=== PATIENT | female | born 1990 | race Caucasian/White ===

== ENCOUNTER 2019-05-15 15:35 | Outpatient (CLI) | payer MEDICAID, SELFPAY ==
--- NOTE | 2019-05-15 | US_ITS ---
WS: [id number] ULTRASOUND EARLY TECHNIQUE: Transabdominal sonography of the pelvis was performed. Followed by transvaginal sonography to better evaluate the uterus and ovaries. CLINICAL INFORMATION: DATING LMP: Unknown Beta hCG: Unknown. COMPARISON: None. FINDINGS: UTERUS AND GESTATIONAL SAC Intrauterine gestations: Estimated gestational age: 7w0d Yolk sac: 0.3 cm. Skene rump length (CRL): 0.9 cm. heart motion: 138 BPM. Subchorionic hemorrhage: Single live intrauterine with subchorionic hemorrhage. Small area of subchorionic hemorrhage measures 1.3 x 0.6 cm OVARIES Right ovary: Normal. Left ovary: Normal. FREE FLUID None. 2. Estimated gestational age: 7w0d 3. Small amount of subchorionic hemorrhage measuring 1.3 x 0.6 cm. Recommend interval follow-up. 4. Normal ovaries. 5. No free fluid in the cul-de-sac. US/US OB <= 14 weeks fetus [id number] IMPRESSION: 1. Single live intrauterine .
== END 2019-05-15 15:36 | disposition home or self-care (01) ==
LOC: RAD 15:37
PROVIDERS: Family Provider Family Medicine; PCP Family Medicine; Visit Provider Family Medicine
DX: Z34.80 Encounter for supervision of other normal pregnancy, unspecified trimester (principal); E03.9 Hypothyroidism, unspecified
CPT/HCPCS: 76801

== ENCOUNTER 2019-06-04 11:51 | Outpatient (CLI) | payer MEDICAID, SELFPAY ==
--- NOTE | 2019-06-04 12:00 | US_ITS ---
WS: [id number] [place] [id number] REASON FOR EXAM: SUBCHORIONIC HEMATOMA,ANTEPARTUM FINDINGS: The cervix measured 3.33 cm and appears to be closed. The subchorionic hematoma is not seen today. heart rate 167 bpm. The fetus appears to be at 9 weeks 5 days gestation due date January 02, 2020. [place] [id number] IMPRESSION: Reabsorption of the subchorionic hematoma. Viable at 9 weeks 5 days gestation with a due date January 02, 2020 .
== END 2019-06-04 11:52 | disposition home or self-care (01) ==
LOC: US 11:56
PROVIDERS: Family Provider Family Medicine; PCP Family Medicine; Visit Provider Family Medicine
DX: O43.899 Other placental disorders, unspecified trimester (principal); Z3A.09 9 weeks gestation of pregnancy
CPT/HCPCS: 76816

== ENCOUNTER 2019-08-13 13:05 | Outpatient (CLI) | payer MEDICAID, SELFPAY ==
--- NOTE | 2019-08-13 13:30 | US_ITS ---
WS: [id number] OBSTETRICAL ULTRASOUND COMPLETE HISTORY: ANATOMY COMPARISON: 06/04/2019 and 05/15/2019 Single intrauterine gestation in Cephalic presentation. Cervix is Closed and normal length. Cervical length is 5.5 cm. Normal amount of amniotic fluid surrounds the fetus. Placenta: Anterior, fundal and posterior Placenta grade 1 Heart: 133 BPM. Four chambers are identified. Anatomy: Intracranial structures and spine are normal. kidneys, stomach and urinary bladd er are unremarkable. Abdominal wall, three-vessel cord and cord insertion site are normal. 4 extremities are present. profile: Unremarkable. Gender: Female. measurements: BPD = 4.6 cm = 19w6d HC = 17.3 cm = 19w6d AC = 15.4 cm = 20w4d FL = 3.3 cm = 20w2d EFW: 348 g., Measurements are internally concordant. AGA by ultrasound: 20w1d MISSAEL by ultrasound: 12/30/2019 US/US OB >= 14 weeks fetus [id number] IMPRESSION: 1. Single intrauterine gestation of 20w1d with an MISSAEL of 12/30/2019. Appropria te growth since the first trimester ultrasound. 2. Unremarkable screening survey of anatomy.
== END 2019-08-13 13:06 | disposition home or self-care (01) ==
LOC: RAD 13:06
PROVIDERS: Family Provider Family Medicine; PCP Family Medicine; Visit Provider Family Medicine
DX: Z36.89 Encounter for other specified antenatal screening (principal); Z3A.20 20 weeks gestation of pregnancy
CPT/HCPCS: 76805

== ENCOUNTER 2019-08-24 12:38 | Outpatient (CLI) | payer MEDICAID, SELFPAY ==
--- NOTE | 2019-08-24 12:47 | US_ITS ---
WS: [id number] THYROID ULTRASOUND HISTORY: ENLARGED THYROID COMPARISON: 04/09/2017 Right lobe: 5.0 cm x 2.0 cm x 1.6 cm. Volume: 8.5 cm3. Mildly enlarged thyroid gland with ill-defined nodules. Coarsened echotexture has improved since the prior study. There is still some very slight increased vascularity. Left lobe: 4.9 cm x 1.8 cm x 1.8 cm. Volume: 8.5 cm3. Mildly enlarged gland. Coarsened echotexture is improved but there are still multiple ill-defined nod ules. No dominant nodule. Isthmus: 0.5 cm. US/US thyroid [id number] IMPRESSION: 1. Mildly enlarged gland consistent with mild thyroiditis. Overall the echotex ture has improved since 04/09/2017. 2. No discrete dominant nodule for biopsy.
--- NOTE | 2019-08-24 12:48 | US_ITS ---
WS: [id number] ULTRASOUND LEFT BREAST HISTORY: BREAST MASS/LUNG COMPARISON: None available. TECHNIQUE: 2-D and Doppler. Ultrasound directed to the 3:00 axis and around the nipple. There are minimally prominent dilated fernando ts. No solid mass or increased vascularity. No abscess. US/US breast LT limited* [id number] IMPRESSION: BI-RADS: 1-Negative FOLLOW-UP: See Report No additional follow-up necessary unless there is a palpable abnormality. Minim ally prominent ducts for the patient's state.
== END 2019-08-24 12:39 | disposition home or self-care (01) ==
LOC: RAD 12:40
PROVIDERS: Family Provider Family Medicine; PCP Family Medicine; Visit Provider Family Medicine
DX: E04.9 Nontoxic goiter, unspecified (principal); N63.20 Unspecified lump in the left breast, unspecified quadrant; E06.9 Thyroiditis, unspecified
CPT/HCPCS: 76536; 76642

== ENCOUNTER → 2019-10-12 15:27 | Outpatient (BNVA) | payer MEDICAID, SELFPAY | PROVIDERS: Family Provider Family Medicine; PCP Family Medicine; Visit Provider Obstetrics & Gynecology | DX: Z30.09 Encounter for other general counseling and advice on contraception (principal); O09.93 Supervision of high risk pregnancy, unspecified, third trimester; E06.9 Thyroiditis, unspecified | CPT/HCPCS: 80307; 81000; 82950; 84443; 85027; 86803 ==

== ENCOUNTER → 2019-10-20 08:39 | Outpatient (BNVA) | payer MEDICAID, SELFPAY | PROVIDERS: Family Provider Family Medicine; PCP Family Medicine; Visit Provider Obstetrics & Gynecology | DX: O09.93 Supervision of high risk pregnancy, unspecified, third trimester (principal) | CPT/HCPCS: 81000 ==

== ENCOUNTER → 2019-10-26 08:38 | Outpatient (BNVA) | payer MEDICAID, SELFPAY | PROVIDERS: Family Provider Family Medicine; PCP Family Medicine; Visit Provider Obstetrics & Gynecology | DX: R73.09 Other abnormal glucose (principal) | CPT/HCPCS: 82951; 82952 ==

== ENCOUNTER → 2019-11-04 13:07 | Outpatient (BNVA) | payer MEDICAID, SELFPAY | PROVIDERS: Family Provider Family Medicine; PCP Family Medicine; Visit Provider Obstetrics & Gynecology | DX: Z34.90 Encounter for supervision of normal pregnancy, unspecified, unspecified trimester (principal) | CPT/HCPCS: 81000 ==

== ENCOUNTER → 2019-11-06 09:04 | Outpatient (BNVA) | payer MEDICAID, SELFPAY | PROVIDERS: Family Provider Family Medicine; PCP Family Medicine; Visit Provider Obstetrics & Gynecology | DX: R10.11 Right upper quadrant pain (principal) | CPT/HCPCS: 80053; 85025 ==

== ENCOUNTER → 2019-11-20 13:35 | Outpatient (BNVA) | payer MEDICAID, SELFPAY | PROVIDERS: Family Provider Family Medicine; PCP Family Medicine; Visit Provider Obstetrics & Gynecology | DX: O99.283 Endocrine, nutritional and metabolic diseases complicating pregnancy, third trimester (principal); E05.90 Thyrotoxicosis, unspecified without thyrotoxic crisis or storm | CPT/HCPCS: 81000 ==

== ENCOUNTER 2019-11-24 14:35 | Outpatient (CLI) | payer MEDICAID, SELFPAY ==
[2019-11-24] VITALS (7 sets, daily range): BP systolic 0–115; BP diastolic 0–73; PULSE 79–105; RESP 18; TEMP 37.1
--- NOTE | 2019-11-24 16:19 | PM.ACPR ---
Procedure/Consent Procedure Narrative: NONSTRESS TEST: Place of test: [facility]-L&D Indication: Hyperthyroidism, abdominal pain in third trimester-34 weeks and 4 days Date and time of test: 11/24/2019, 4 PM Baseline: 135 Variability: Moderate variability Accelerations: Accelerations present Decelerations: No decelerations Tocometry: Irregular contractions INTERPRETATION: NST reactive, reassuring continue kick counts
[2019-11-24 16:53] LABS: Nitrazine Paper, PH Negative
== END 2019-11-24 17:15 | disposition home or self-care (01) ==
LOC: OPOB 14:47 → OBGYN 14:48
PROVIDERS: Family Provider Family Medicine; PCP Family Medicine; Visit Provider Obstetrics & Gynecology
DX: O26.899 Other specified pregnancy related conditions, unspecified trimester (principal); Z3A.00 Weeks of gestation of pregnancy not specified; R10.9 Unspecified abdominal pain; N89.8 Other specified noninflammatory disorders of vagina
CPT/HCPCS: 12345; 83986; 99211

== ENCOUNTER → 2019-11-27 10:26 | Outpatient (BNVA) | payer MEDICAID, SELFPAY | PROVIDERS: Family Provider Family Medicine; PCP Family Medicine; Visit Provider Obstetrics & Gynecology | DX: O99.283 Endocrine, nutritional and metabolic diseases complicating pregnancy, third trimester (principal); E05.90 Thyrotoxicosis, unspecified without thyrotoxic crisis or storm | CPT/HCPCS: 76816; 76819 ==

== ENCOUNTER → 2019-12-04 13:56 | Outpatient (BNVA) | payer MEDICAID, SELFPAY | PROVIDERS: Family Provider Family Medicine; PCP Family Medicine; Visit Provider Obstetrics & Gynecology | DX: O09.43 Supervision of pregnancy with grand multiparity, third trimester (principal); Z3A.00 Weeks of gestation of pregnancy not specified | CPT/HCPCS: 76816; 76819; 81000; 87081 ==

== ENCOUNTER → 2019-12-11 10:18 | Outpatient (BNVA) | payer MEDICAID, SELFPAY | PROVIDERS: Family Provider Family Medicine; PCP Family Medicine; Visit Provider Obstetrics & Gynecology | DX: O09.43 Supervision of pregnancy with grand multiparity, third trimester; O09.893 Supervision of other high risk pregnancies, third trimester; O99.283 Endocrine, nutritional and metabolic diseases complicating pregnancy, third trimester; E05.90 Thyrotoxicosis, unspecified without thyrotoxic crisis or storm; O99.613 Diseases of the digestive system complicating pregnancy, third trimester; K21.9 Gastro-esophageal reflux disease without esophagitis; Z3A.37 37 weeks gestation of pregnancy | CPT/HCPCS: 76816; 76819; 81000; 85025 ==

== ENCOUNTER 2019-12-17 11:50 | Inpatient (IN) | payer MEDICAID, SELFPAY ==
[2019-12-17] VITALS (92 sets, daily range): BP systolic 0–155; BP diastolic 0–86; PULSE 69–117; RESP 16–20; TEMP 36.7–37.2; O2SAT 98–100; BMI 32.8
--- NOTE | 2019-12-17 10:45 | PC.NURSE ---
This selling underwriter attempted to start patients IV two separate times, once in each hand. During each attempt, patient started feeling lightheaded and thought she was going to pass out. After the first time patient started feeling nauseous and dry heaving. This selling underwriter then gave the patient a cool rag to put on her face. Will reattempt patient IV in a short time.
[2019-12-17 11:26] LABS: Basophils % 0.5 %; Eosinophils # 0.1 10^3/uL (0.0-0.8); Hemoglobin 10.5 g/dL (11.5-15.3); Lymphocytes # 2.9 10^3/uL (0.8-4.8); Lymphocytes % 37.2 %; Mean Corpuscular HGB Conc 30.9 g/dL (30.0-36.0); Mean Corpuscular Hemoglobin 25.3 pg (28.0-34.0); Mean Corpuscular Volume 81.9 fL (81-99); Mean Platelet Volume 11.2 fL (7.4-10.4); Monocytes # 0.6 10^3/uL (0.2-0.9); Monocytes % 8.1 %; Neutrophils # 4.01 10^3/uL (1.8-7.7); Neutrophils % 52.4 %; Nucleated Red Blood Cells % 0 %; Platelet Count 266 10^3/cmm (130-400); Red Blood Count 4.15 10^6/uL (4.1-5.3); Red Cell Distribution Width 13.4 % (12.1-15.1); White Blood Count 7.7 10^3/uL (4.0-10.0)
[2019-12-17] MEDS: alum-mag-hydroxide-sime 30 mL UDC PO (13:41)
[2019-12-17] MEDS: dextrose 5%-lactated ringers 1,000 ML 125 ML IV (15:47)
[2019-12-17] MEDS: oxytocin 30 UNIT/500 ML BAG IV (16:07)
[2019-12-17 16:40] LABS: Nitrazine Paper, PH Positive
[2019-12-17] MEDS: lactated ringers 1,000 ML 999 ML IV ×2 (17:14→20:38)
[2019-12-17] MEDS: fentaNYL 50 mcg/mL INJ 2mL IV (17:55)
--- NOTE | 2019-12-17 18:12 | P.ANESASSM_ITS ---
Pre-Anesthetic Assessment Pre-Anesthetic Assessment: Height/Weight: Height 1.52 m Weight 76.204 kg Temp Pulse Resp BP 98.9 F 82 20 H 93/54 12/17/19 13:38 12/17/19 17:12 12/17/19 17:55 12/17/19 17:12 Preop Diagnosis: labor pain Proposed Procedure: epidural Was Beta Tylor taken within 24 hours: N/A Social: Social History: No alcohol and No tobacco Exam: Pre-Anes Outpt Exam: alert, oriented x 3, clear to auscultation bilaterally and regular rate & rhythm Airway: Submandibular: WNL Cervical ROM: WNL MP: 2 Dentition: Full Pulmonary: Pulmonary: None reported CV/HEM: CV/HEM: Anemia Comments: leaky valve as kid but has resolved per patient : : None reported Hepatic: Hepatic: None reported GI: GI: GERD Metabolic: Metabolic: None reported Musc/skel: Musc/skel: None reported Neuropsych: Neuropsych: None reported Anesthetic Plan: ASA status: 2 Anesthesia: Eval. for regional block Risk of > 500 ml blood loss (7ml/kg in children): No Meds/Allergies Current Medications: Current Medications Generic Name Dose Route Start Last Admin Trade Name Freq PRN Reason Stop Dose Admin Al Hydrox/Mg [place] x/Simethicone 30 ml 12/17/19 09:55 12/17/19 13:41 Maalox PO 30 ml Q4H PRN Administration INDIGESTION Fentanyl 25 - 100 mcg 12/17/19 17:44 12/17/19 17:55 Sublimaze IV 25 mcg Q1H PRN Administration SEVERE PAIN Lactated Ringer's 1,000 mls @ 999 m ls/hr 12/17/19 09:55 12/17/19 17:14 Lactated Ringers IV 999 mls/hr .Q1H1M PRN Administration Per L&D Rescitati on Protocol Dextrose/Lactated Ringer's 1,000 mls @ 125 m ls/hr 12/17/19 10:00 12/17/19 17:14 Dextrose 5%-Lact ated Ringers IV 0 mls/hr .Q8H MAURILIO Infusion Oxytocin 30 unit in 500 ml s @ 1 mls/hr 12/17/19 16:00 12/17/19 16:37 Pitocin IV 2 milliunit/min .Q24H MAURILIO 2 mls/hr Titration Protocol 1 MILLIUNIT/MIN PFSH Anesthesia PFSH: Medical History Patient denies medical problems Patient denies any past medical history of hypertension, diabetes, heart, lung, liver, kidney, thyroid, bleeding, or clotting problems. Thyroiditis Surgical History History of ankle surgery ORIF right ankle History of cholecystectomy (~2013) History of endoscopy Endoscopic retrograde cholangiopancreatography x 3 Family History Grandmother Diabetes paternal Hyperlipidemia paternal Hypertension paternal Hypothyroid paternal Family/Other Thyroid condition maternal aunts Denies family history of Clotting disorder Anesthesia complication Bleeding disorder Stroke Social History (Updated 12/11/19 @ 11:08 by Griselda Mendoza RN) Smoking and tobacco status: former smoker Quit status (tobacco): has quit using tobacco Year quit tobacco: 2013 Alcohol intake: never Female Reproductive History: : 12 Data Anesthesia CBC & Chem 7: 12/17/19 10:20 Other Labs: Laboratory Results - last 48 hr 12/17/19 10:20 WBC 7.7 RBC 4.15 Hgb 10.5 L Hct 34.0 L MCV 81.9 MCH 25.3 L MCHC 30.9 RDW 13.4 Plt Count 266 MPV 11.2 H Neut % (Auto) 52.4 Lymph % (Auto) 37.2 Ritchie % (Auto) 8.1 Eos % (Auto) 1.0 Baso % (Auto) 0.5 Neut # (Auto) 4.01 Lymph # (Auto) 2.9 Ritchie # (Auto) 0.6 Eos # (Auto) 0.1 Baso # (Auto) 0.0 Nucleated RBC % (auto) 0 Nucleated RBCs # 0.0 Cardiac Studies: 2 No Data to Display
--- NOTE | 2019-12-17 18:44 | ANES.PROC ---
Anesthesia Procedures Procedure/Date: 12/17/19 epidural Procedure Narrative: epidural complete, bolus given, epidural pump initiated with CORRUGATOR OPERATOR HELPER education given, vitals taken during procedure using OBIX system and satisfactory throughout, patient admits to decrease pain, report of procedure to OB RN Epidural: Time Out Performed: Yes Consents Signed: Procedure Consent Consent: requested by attending/covering physician, from patient, risks and benefits reviewed and patient agrees to proceed Lumbar Level: L3-L4 Epidural position: sitting Epidural procedure: sterile prep of area, 1% lidocaine to numb the area (3 mL), 18 g needle, negative for paresthesia passed, neg for paresthesia, test dose given, 1.5% xylocaine 1:200k epi (5 mL), 0.2% Ropivacaine bolus ml (5 mL), placed PCEA, no systemic response, sterile dressing applied, L.U.D. no apparent complications and 0.2% Ropiavacaine @ mls/hr (13 mL/hr)
--- NOTE | 2019-12-17 22:04 | XR_ITS ---
WS: [id number] ABDOMEN 1 VIEW(S) HISTORY: STAT no count COMPARISON: None available. Normal bowel gas pattern. No suspicious calcifications or masses. No bone abnormality. No retained foreign bodies or surgical sponge. XR/XR abdomen 1V* [id number] IMPRESSION: Negative for retained surgical instruments.
--- NOTE | 2019-12-17 22:31 | PM.OP ---
Operative Report Date of procedure: December 17, 2019 Pre-op Diagnosis: labor pain Pre-op Diagnosis: IUP at term. Nonreassuring status Post-op Findings: Baby boy, Nuchal cord around the neck twice, Apgars 8/9 weight 2945 g Procedure Done: Primary low-transverse delivery Surgeon: Marcelo Peraza Surgeon: Marcelo Peraza M.D. Anesthesia: General Estimated blood loss (mL): 1,000 Findings: Term Male infant, Nuchal cord ?2, Apgars 8/9 weight 2945 g Condition: stable Disposition: floor Brief History: 29-year-old female with term Procedure: After assuring informed consent, the patient was taken to the operating room and anesthesia was initiated. She was placed in the dorsal supine position with a left lateral tilt. The abdomen was prepped and draped in the usual sterile manner. A time-out procedure was performed. A Pfannenstiel skin incision was made with the scalpel and carried through to the underlying layer of fascia with the Bovie. The fascia was nicked in the midline and the incision extended laterally with the Barrera scissors. The superior aspect of the fascial incision was then grasped with Anu clamps and elevated and the underlying rectus muscle dissected off bluntly and sharp with barrera scissors. Attention was then turned to the inferior aspect of the incision which, in similar fashion, was grasped and tented up with Anu clamps and the rectus muscle dissected bluntly. The rectus muscles were then in the midline and the peritoneum identified, tented up and entered sharply with Metzenbaum scissors. The peritoneal incision was then extended superiorly and inferiorly with good visualization of the bladder. The Jose De Jesus O retractor was then inserted and the vesicouterine peritoneum identified, grasped with pickups and entered sharply with Metzenbaum scissors. This incision was then extended laterally and the bladder flap created digitally. The uterus incised in a low transverse fashion with the scalpel. The uterine incision was then extended with the bandage scissors. The infant was then delivered in the cephalic presentation atraumatically at 2118 hours. Nuchal cord ?2 was noticed and relieved. The nose and the mouth were suctioned with bulb and the cord clamped and cut. The cord was normal and had three vessels. Amniotic fluid was clear. The placenta was then removed manually and the uterus exteriorized and cleared of all clots and debris. The uterine incision was repaired with 0 Vicryl in a running-locked fashion. A second layer of the same suture was used to obtain excellent hemostasis. The gutters were cleared of all clots. The uterus was then returned to the abdomen. The rectus muscles were approximated with 3-0 chromic gut. The fascia was reapproximated with 0 Vicryl in an interrupted midlock running fashion. The skin was closed with Insorb?s subcuticular absorbable mian. The incision was infiltrated with Exparel for pain management. The patient tolerated the procedure well. The sponge, lap and needle counts were correct times three. The patient was given Ancef 2 gm intravenously immediately after delivery of the infant.
--- NOTE | 2019-12-17 22:32 | ANE.PACU2 ---
Inpatient post-anesthesia follow up: Airway intact: Yes Vital signs: Temperature 98.9 F Pulse Rate 93 Respiratory Rate 20 Blood Pressure 130/65 Pulse Oximetry 100 Oxygen Delivery Me thod Room Air Oxygen Flow Rate Fraction of Inspir ed Oxygen Hydration adequate: Yes Nausea and vomiting: No Mental status: Baseline
[2019-12-18] VITALS (19 sets, daily range): BP systolic 87–118; BP diastolic 48–75; PULSE 68–88; RESP 14–20; TEMP 36.7–37.2; O2SAT 96–97
[2019-12-18] MEDS: diphenhydrAMINE 50 mg/mL SDV 1mL 25 MG IVP ×2 (00:53→05:58)
[2019-12-18] MEDS: ketorolac 30 mg/mL INJ IVP (05:58)
[2019-12-18] MEDS: ceFAZolin 1,000 MG in sodium chloride 0.9% (plus) 50 ML 100 MG IV (05:58)
--- NOTE | 2019-12-18 07:27 | ANE.PACU2 ---
Inpatient post-anesthesia follow up: Airway intact: Yes Vital signs: Temperature 98.9 F Pulse Rate 74 Respiratory Rate 16 Blood Pressure 118/75 Pulse Oximetry 96 Oxygen Delivery Me thod Room Air Oxygen Flow Rate Fraction of Inspir ed Oxygen Hydration adequate: Yes Nausea and vomiting: No Pain level: 2 Mental status: Baseline Additional Comments: no signs of infection a epidural site, no numbness/weakness in legs, no headaches
[2019-12-18] MEDS: ferrous sulfate EC 325 mg Tablet PO ×2 (09:49→18:15)
[2019-12-18] MEDS: prenatal vitamin Capsule 1 CAP PO (09:50)
[2019-12-18] MEDS: docusate sodium 100 mg Capsule PO ×2 (09:50→18:14)
[2019-12-18] MEDS: dextrose 5%-lactated ringers 1,000 ML 125 ML IV (09:51)
[2019-12-18 11:04] LABS: Hematocrit 24.8 % (37.0-47.0); Hemoglobin 7.5 g/dL (11.5-15.3); Mean Corpuscular HGB Conc 30.2 g/dL (30.0-36.0); Mean Corpuscular Hemoglobin 25.4 pg (28.0-34.0); Mean Corpuscular Volume 84.1 fL (81-99); Mean Platelet Volume 10.5 fL (7.4-10.4); Platelet Count 265 10^3/cmm (130-400); Red Blood Count 2.95 10^6/uL (4.1-5.3); Red Cell Distribution Width 13.5 % (12.1-15.1); White Blood Count 19.4 10^3/uL (4.0-10.0)
[2019-12-18] MEDS: HYDROcodone-acetaminophen 5-325 mg Tablet PO ×2 (12:08→18:50)
--- NOTE | 2019-12-18 12:59 | P.PN_ITS ---
Subjective Subjective: Interval history: 29-year-old female status post primary low- transverse delivery day 1. Patient refers doing better. Pain well control. Vitals/I&O/Wt Last Vital Signs Temp 98.5 F 12/19/19 08:30 Pulse 73 12/19/19 08:30 Resp 18 12/19/19 08:30 BP 107/71 12/19/19 08:30 Pulse Ox 97 12/18/19 18:43 12/18/19 12/19/19 12/19/19 22:59 06:59 14:59 Intake Total 700 / 875 Output Total 650 / 1450 675 / 2125 Balance 50 / -575 -675 / -1250 Physical Exam Narrative: EXAM NARRATIVE: GA: Alert and oriented ?3. HEENT: WNL. Heart: Regular rate and rhythm. Lungs: Clear to auscultation bilaterally. Abdomen: Bowel sounds present, minimal tenderness, incision clean and dry, no redness, pain or edema. CLINICAL SUPPORT ASSOCIATE: No bleeding. Extremities: No edema, no cyanosis, no calves pain. Urinary Catheter Management^: Boateng: Cath Placed During This Visit: yes, but has since been removed by the nurse Reason for Continuing Indwelling Catheter: Required Immobilization for Trauma or Surgery or Anesthesia Urinary Catheter Date of Insertion: 12/17/19 Urinary Catheter Time of Insertion: 21:04 Date Urinary Catheter Removed: 12/19/19 Time Urinary Catheter Discontinued: 04:00 Data : 12/19/19 06:15 A&P Additional A&P Information Status post primary low-transverse delivery day 1. She is afebrile hemodynamically stable. Tolerating diet well ambulating without difficulty. Plan: Continue postop observation Attestations Medical Necessity Statement*: In my professional opinion per admitting diagnosis Coding Level of Care Code Acute Veterinary Surgery Technician for Dulce Edge
--- NOTE | 2019-12-18 14:45 | SUR.OPER ---
6057 blood bank called, blood is ready
[2019-12-18] MEDS: sodium chloride 0.9% 500 ML 250 ML (15:02)
[2019-12-18] MEDS: sodium chloride 0.9% (100 ml) 100 ML 50 ML (18:20)
[2019-12-19] MEDS: HYDROcodone-acetaminophen 5-325 mg Tablet PO ×2 (02:45→08:46)
[2019-12-19 04:20] VITALS: BP 108/71; PULSE 80; RESP 17; TEMP 36.9
[2019-12-19 06:39] LABS: Hemoglobin 9.4 g/dL (11.5-15.3); Mean Corpuscular HGB Conc 31.3 g/dL (30.0-36.0); Mean Corpuscular Hemoglobin 26.7 pg (28.0-34.0); Mean Corpuscular Volume 85.2 fL (81-99); Mean Platelet Volume 10.5 fL (7.4-10.4); Platelet Count 213 10^3/cmm (130-400); Red Blood Count 3.52 10^6/uL (4.1-5.3); Red Cell Distribution Width 14.1 % (12.1-15.1); White Blood Count 12.8 10^3/uL (4.0-10.0)
[2019-12-19 08:30] VITALS: BP 107/71; PULSE 73; RESP 18; TEMP 36.9
[2019-12-19] MEDS: docusate sodium 100 mg Capsule PO ×2 (08:46→17:54)
[2019-12-19] MEDS: prenatal vitamin Capsule 1 CAP PO (08:47)
--- NOTE | 2019-12-19 10:02 | P.PN_ITS ---
Subjective Subjective: Interval history: 29-year-old female status post primary low- transverse delivery day 1. Patient refers doing better. Pain well control. took a shower Vitals/I&O/Wt Last Vital Signs Temp 98.5 F 12/19/19 08:30 Pulse 73 12/19/19 08:30 Resp 18 12/19/19 08:30 BP 107/71 12/19/19 08:30 Pulse Ox 97 12/18/19 18:43 12/18/19 12/19/19 12/19/19 22:59 06:59 14:59 Intake Total 700 / 875 Output Total 650 / 1450 675 / 2125 Balance 50 / -575 -675 / -1250 Physical Exam Narrative: EXAM NARRATIVE: GA: Alert and oriented ?3. HEENT: WNL. Heart: Regular rate and rhythm. Lungs: Clear to auscultation bilaterally. Abdomen: Bowel sounds present, minimal tenderness, incision clean and dry, no redness, pain or edema. CARBON CAPTURE POWER PLANT ENGINEER: Normal lochia. Extremities: No edema, no cyanosis, no calves pain. Urinary Catheter Management^: Boateng: Cath Placed During This Visit: yes, but has since been removed by the nurse Reason for Continuing Indwelling Catheter: Required Immobilization for Trauma or Surgery or Anesthesia Urinary Catheter Date of Insertion: 12/17/19 Urinary Catheter Time of Insertion: 21:04 Date Urinary Catheter Removed: 12/19/19 Time Urinary Catheter Discontinued: 04:00 Data : 12/19/19 06:15 A&P Additional A&P Information Status post primary low-transverse delivery day 2. She is afebrile hemodynamically stable. Tolerating diet well ambulating without difficulty. Plan: Continue postop observation. Discharge home tomorrow. Attestations Medical Necessity Statement*: In my professional opinion per admitting diagnosis. Coding Level of Care Code Acute Gas Or Petroleum Operator for Dulce dEge
[2019-12-19] MEDS: ferrous sulfate EC 325 mg Tablet PO ×2 (11:14→17:54)
[2019-12-19 16:00] VITALS: BP 125/85; PULSE 89; RESP 16; TEMP 36.8
[2019-12-19 18:15] VITALS: BP 104/69; PULSE 69; RESP 18; TEMP 36.3
[2019-12-19 22:16] VITALS: BP 122/79; PULSE 72; RESP 16; TEMP 36.9; O2SAT 96
[2019-12-20] MEDS: HYDROcodone-acetaminophen 5-325 mg Tablet PO ×2 (02:20→08:09)
[2019-12-20 05:30] VITALS: BP 104/66; PULSE 60; RESP 16; TEMP 36.7; O2SAT 98
[2019-12-20] MEDS: ferrous sulfate EC 325 mg Tablet PO (08:09)
[2019-12-20] MEDS: docusate sodium 100 mg Capsule PO (08:10)
[2019-12-20] MEDS: prenatal vitamin Capsule 1 CAP PO (08:10)
[2019-12-20 10:00] VITALS: BP 104/68; PULSE 60; RESP 16; TEMP 36.9; O2SAT 98
--- NOTE | 2019-12-20 10:34 | PM.OBGYDC ---
Discharge Providers SALES DEPARTMENT SUPERVISOR Date of Admission: 12/17/19 11:50 Date of Discharge: 12/20/19 Attending Provider at Admission: Cruz Huizar DO Attending Provider at Discharge: Marcelo Peraza MD Primary Care Provider: Cruz Huizar DO Diagnoses at Discharge Discharge Diagnosis (1) delivery, delivered, current hospitalization: Status: Acute (2) Premature rupture of membranes (PROM), delivered: Status: Acute Reason for Visit Reason for Visit: Possible rupture of membranes Hospital Course Hospital Course: 29 y/0 female 12, Para 2-0-9-2 with an LMP of 03/27/2019 and an EDC of 01/01/2020 based on LMP. Came to labor and delivery complaining of rupture of membranes and contractions. Prematured rupture membranes was confirmed, Cervical dilation was 2 with effacement of 40% station -3 in Cephalic presentation. Labor augmented with oxytocin, She progressed slowly, heart tracing started to show variable decelerations. Intrauterine resuscitation was initiated, she is in change several times, and infusion was performed, without improvement of repetitive variable decelerations. An emergent delivery was performed without complications. The patient had planned to have a tubal ligation but the procedure was not performed during the delivery because nursing personnel cannot find the consent for the permanent sterilization. Post delivery recovery was uneventful. Postop morning CBC showed hemoglobin 7.5, and 2 units of packed red blood cells were ordered. Post_transfusion hemoglobin was 9.4. She is afebrile and hemodynamically stable, referred this morning she is feeling a lot better, just mild cramping while breast-feeding. Ambulating without difficulty, Tolerating diet well. Information Peripartum Data: Infant Delivery Method: Section Physical Exam Narrative: EXAM NARRATIVE: GA: Alert and oriented ?3. HEENT: WNL. Heart: Regular rate and rhythm. Breasts: engorged, nipples - skin intact Lungs: Clear to auscultation bilaterally. Abdomen: Bowel sounds present, minimal tenderness, incision clean and dry, no redness, pain or edema. Uterine fundus below umbilicus. No Fundal Tenderness. ORTHO/PROSTHETIC AIDE: normal lochia. Extremities: No edema, no cyanosis, no calves pain. Urinary Catheter Management^: Boateng: Cath Placed During This Visit: yes, but has since been removed by the nurse Reason for Continuing Indwelling Catheter: Required Immobilization for Trauma or Surgery or Anesthesia Urinary Catheter Date of Insertion: 12/17/19 Urinary Catheter Time of Insertion: 21:04 Date Urinary Catheter Removed: 12/19/19 Time Urinary Catheter Discontinued: 04:00 Discharge Data Data Completed and Pending: Completed Studies During Hospitalization Category Date Time Status XR abdomen 1V* 74 018 Stat Exams 12/17/19 22:04 Completed Pending at discharge Category Date Time Status Leukocyte Reduced RBC Routine Lab 12/18/19 12:22 Results Type and Screen R outine Lab 12/18/19 12:22 Results Laboratory Tests 12/11/19 12/17/19 12/18/19 11:52 10:20 10:50 WBC 7.7 7.7 19.4 H Hgb 10.2 L 10.5 L 7.5 L Hct 33.6 L 34.0 L 24.8 L Plt Count 299 266 265 12/19/19 06:15 WBC 12.8 H Hgb 9.4 L Hct 30.0 L Plt Count 213 Procedures Performed: Primary low-transverse delivery Vitals: Last Vital Signs Temp 98.0 F 12/20/19 05:30 Pulse 60 12/20/19 05:30 Resp 16 12/20/19 05:30 BP 104/66 12/20/19 05:30 Pulse Ox 98 12/20/19 05:30 Discharge Plan Discharge Patient Disposition: Home Condition: Stable Prescriptions: New acetaminophen 325 mg Tablet 650 mg PO Q6H PRN (Reason: Mild pain or temp > 100.4) Qty: 60 RF: 0 ibuprofen 800 mg Tablet 800 mg PO TID Qty: 60 RF: 0 hydrocodone-acetaminophen 5-325 mg Tablet 1 - 2 tab PO Q4H PRN (Reason: Moderate To Severe Pain) Qty: 30 RF: 0 docusate sodium 100 mg Capsule 100 mg PO BID Qty: 60 RF: 0 Continued ferrous sulfate 324 mg (65 mg iron) tablet,delayed release (DR/EC) See Rx Instructions PO DAILY RF: 0 prenat.vits,pamella,[id number]-wjyp-ghunw Tablet 1 tab PO DAILY RF: 0 calcium carbonate [Tums] 200 mg calcium (500 mg) tablet,chewable 200 mg PO TID PRN (Reason: Acid Reflux) RF: 0 folic acid 400 mcg tablet 0.4 mg PO DAILY RF: 0 methimazole 5 mg tablet 5 mg PO DAILY Qty: 30 RF: 0 omeprazole 20 mg capsule,delayed release(DR/EC) 20 mg PO DAILY Qty: 30 RF: 5 Discharge Orders: Discharge Order (Routine); Ordered 12/20/19 Ordered By: Marcelo Peraza Referrals: Marcelo Peraza MD [Physician] - 2 weeks Discharge Diet: As Directed Discharge Activity: Increase activity as tolerated Patient Instructions: Hydrocodone/Acetaminophen (By mouth), Vitamins (By mouth), Laxative, Stool Softeners (By mouth), Section (DC), OB C, OB Discharge Report, OB Food/Drug Interaction Guide, OB Home Care Instructions, OB Home Care, OB Proud Parent Packet Activity Restrictions/Additional Instructions: Pelvic rest for 6 weeks (no sex, no tampons, no vaginal douches). Return to the emergency room if any fever, increased bleeding or pain. Discharge Attestations SALES DEPARTMENT SUPERVISOR Time Spent in Discharge Care*: greater than 30 min Coding Level of Care Code Acute Health Manager for g Fwd Diagnoses delivery, delivered, current hospitalization O82 Premature rupture of membranes (PROM), delivered O42.90
[2019-12-20] MEDS: lanolin oint 7 gm 1 APPLIC TOPICAL (10:39)
[2019-12-20 13:40] VITALS: BP 118/78; PULSE 76; RESP 18; TEMP 37.3; O2SAT 98
[2019-12-20 15:00] VITALS: BP 118/78; PULSE 76; RESP 18; TEMP 37.3
== END 2019-12-20 13:45 | disposition home or self-care (01) | DRG 788 ==
LOC: OBGYN 12-19 18:13 → OPOB 12-22 08:36
PROVIDERS: Obstetrics & Gynecology; Admitting Provider Family Medicine; PCP Family Medicine; Visit Provider Obstetrics & Gynecology
PROC: 10D00Z1 Extraction of Products of Conception, Low, Open Approach (ICD-10-PCS; CPT 59514; principal; 2019-12-17 21:05)
DX: O76 Abnormality in fetal heart rate and rhythm complicating labor and delivery (principal); O69.2XX0 Labor and delivery complicated by other cord entanglement, with compression, not applicable or unspecified; O42.92 Full-term premature rupture of membranes, unspecified as to length of time between rupture and onset of labor; Z3A.37 37 weeks gestation of pregnancy; Z37.0 Single live birth
CPT/HCPCS: 12345; 36415; 36430; 59025; 59409; 74018; 83986; 85025; 85027; 86850; 86900; 86920; 96374; 96375; 99211; C9290; J0330; J0690; J1100; J1200; J1885; J2274; J2405; J2704; J3010; J3490; J7030; J7040; P9016

== ENCOUNTER 2019-12-24 16:29 | Emergency (ER) | payer MEDICAID, SELFPAY ==
[2019-12-24 16:39] VITALS: BP 170/105; PULSE 64; RESP 20; TEMP 36.6; O2SAT 99; BMI 31.2
--- NOTE | 2019-12-24 16:54 | XR_ITS ---
WS: [id number] Portable AP upright chest, 12/24/2019 Clinical Data: SOB Comparison: PA and lateral chest, 03/19/2017. Findings: No nodules or masses are seen. There is minimal opacity at the left costophrenic angle and there may be a small effusion. The heart is enlarged. The pulmonary vascularity is not increased. No pneumonia or pneumothorax is seen. There are clips in the right upper quadrant from a cholecystectom y. XR/XR chest 1V portable [id number] Impression: 1. Cardiomegaly. 2. Minimal left effusion and opacity which may represent atelectasis or pneumon ia.
--- NOTE | 2019-12-24 16:55 | ECG_ITS ---
[facility] Test Date: 2019-12-24 Pat Name: Agata Hurst Department: Room: Gender: Female Dough Raiser: : 1990 Requested By: Latrice Jane Order Number: [id number] Sadie MD: Garret Davidson M.D. Measurements Intervals [place] Rate: 61 P: 40 ND: 119 QRS: 28 QRSD: 85 T: 32 QT: 445 QTc: 449 Interpretive Statements SINUS RHYTHM WITH SHORT ND INTERVAL WITH FREQUENT VENTRICULAR PREMATURE COMPLEXES MINIMAL ST DEPRESSION [0.025+ mV ST DEPRESSION] ABNORMAL RHYTHM ECG No previous ECG available for comparison Electronically Signed On 12-24-2019 20:23:18 CDT by Garret Davidson M.D. [id number]
[2019-12-24 17:19] VITALS: BP 166/92; PULSE 53; RESP 16; O2SAT 99
[2019-12-24 17:27] LABS: Add Urine Microscopic? YES; Bilirubin Urine Neg (Negative); Blood Urine 3+ (Negative); Glucose Urine UA Norm (Normal); Ketones Urine Negative (Negative); Leukocyte Esterase Urine Negative (Negative); Nitrate Urine Negative (Negative); Protein Urine Neg (Negative); Urine Appearance Hazy (CLEAR); Urine Color Straw (Yellow); Urobilinogen Urine Norm (Negative); pH Urine 7 (5-7)
[2019-12-24 17:40] LABS: RBC Urine 0-4 /hpf (0-2)
[2019-12-24 17:41] LABS: Add Urine Culture? No; Bacteria Urine TRACE /hpf; Squamous Epithelial Cell Urine 0-4 /hpf (0-5)
[2019-12-24 17:44] LABS: Basophils # 0.1 10^3/uL (0.0-0.1); Basophils % 0.7 %; Eosinophils # 0.1 10^3/uL (0.0-0.8); Eosinophils % 1.4 %; Hemoglobin 12.1 g/dL (11.5-15.3); Lymphocytes # 2.3 10^3/uL (0.8-4.8); Lymphocytes % 26.2 %; Mean Corpuscular HGB Conc 31.8 g/dL (30.0-36.0); Mean Corpuscular Hemoglobin 26.6 pg (28.0-34.0); Mean Corpuscular Volume 83.5 fL (81-99); Mean Platelet Volume 10.4 fL (7.4-10.4); Monocytes # 0.6 10^3/uL (0.2-0.9); Monocytes % 6.3 %; Neutrophils # 5.61 10^3/uL (1.8-7.7); Neutrophils % 63.4 %; Nucleated Red Blood Cells % 0 %; Platelet Count 381 10^3/cmm (130-400); Red Blood Count 4.55 10^6/uL (4.1-5.3); Red Cell Distribution Width 14.6 % (12.1-15.1); White Blood Count 8.9 10^3/uL (4.0-10.0)
[2019-12-24 18:09] LABS: Troponin(5th) Baseline 7 ng/L (0-10)
[2019-12-24 18:14] LABS: Alanine Aminotransferase 15 U/L (0-33); Alkaline Phosphatase 124 IU/L (35-105); Anion Gap 15.9 (5-19); Aspartate Amino Transferase 17 U/L (0-32); Blood Urea Nitrogen 11 mg/dL (6-20); Calcium 8.7 mg/dL (8.5-10.5); Carbon Dioxide 24 mmol/L (22-29); Chloride 105 mmol/L (98-107); Globulin 3.3 g/dL (1.3-4.6); Glomerular Filtration Rate 117.4 mL/min (90-130); Glucose 97 mg/dL (65-115); Magnesium 2.1 mg/dL (1.7-2.3); NT Pro B Type Natriuretic Pept 646 pg/mL (0-125); Osmolality Calculated 288 mOsm/kg (285-295); Potassium 3.9 mmol/L (3.5-5.1); Sodium 141 mmol/L (136-145); Total Bilirubin 0.3 mg/dL (0.15-1.2); Total Protein 7.3 g/dL (6.6-8.7)
[2019-12-24 18:22] VITALS: BP 143/97; PULSE 56; RESP 20; O2SAT 97
--- NOTE | 2019-12-24 18:55 | ECG_ITS ---
[facility] Test Date: 2019-12-24 Pat Name: Agata Hurst Department: Room: Gender: Female Embedded Hardware Engineer: : 1990 Requested By: Latrice Jane Order Number: [id number] Sadie MD: Garret Davidson M.D. Measurements Intervals [place] Rate: 49 P: 20 IL: 125 QRS: 27 QRSD: 82 T: 29 QT: 456 QTc: 414 Interpretive Statements SINUS BRADYCARDIA WITH OCCASIONAL VENTRICULAR PREMATURE COMPLEXES Compared to ECG 12/24/2019 16:43:23 Ventricular premature complex(es) now present Sinus rhythm no longer present Short IL interval no longer present ST (T wave) deviation no longer present Electronically Signed On 12-24-2019 20:25:18 CDT by Garret Davidson M.D. [email or web address] [id number]
[2019-12-24 19:03] VITALS: BP 174/92; PULSE 47; RESP 19; O2SAT 97
[2019-12-24 19:51] LABS: Thyroid Stimulating Hormone 1.14 uIU/mL (0.27-4.20)
[2019-12-24 19:58] LABS: Troponin 5 2HR 6.16 ng/L (0-10)
--- NOTE | 2019-12-24 20:06 | USCV_ITS ---
Agata Hurst Age: 29 Gender: F : 1990 Exam Date: 12/24/2019 22:27 Ordering Phys: Latrice Damon MD Technologist: Reddy Antoine [place]am [place] [facility] [place]: ? POST PART CARDIOMYOPATHY BP: 120 / 73 HR: 55 Rhythm: Sinus Technical Quality: Good MEASUREMENTS (Male / Female) Normal Values 2D ECHO LV Diastolic Diameter PLAX 3.7 cm 4.2 - 5.9 / 3.9 - 5.3 cm LV Systolic Diameter PLAX 2.4 cm IVS Diastolic Thickness 0.7 cm 0.6 - 1.0 / 0.6 - 0.9 cm IVS Systolic Thickness 1.2 cm LVPW Diastolic Thickness 1.2 cm 0.6 - 1.0 / 0.6 - 0.9 cm LVPW Systolic Thickness 1.4 cm LVOT Diameter 2.1 cm LV Ejection Fraction 2D Teich 62.9 % LV Ejection Fraction MOD 2C 78.7 % LV Ejection Fraction 2C AL 79.3 % LA Diameter 3.1 cm LA Width 3.8 cm LA Height 4.5 cm RA Width 3.3 cm RA Height 4.6 cm Aorta at Sinotubular Diameter 0.7 cm M-MODE LV Diastolic Diameter MM 3.9 cm 4.2 - 5.9 / 3.9 - 5.3 cm LV Systolic Diameter MM 2.2 cm LV Ejection Fraction MM Teich 74.8 % IVS Diastolic Thickness MM 1.0 cm 0.6 - 1.0 / 0.6 - 0.9 cm IVS Systolic Thickness MM 1.7 cm LVPW Diastolic Thickness MM 0.9 cm 0.6 - 1.0 / 0.6 - 0.9 cm LVPW Systolic Thickness MM 1.6 cm RV Diastolic Diameter MM 1.2 cm Aortic Annulus Diameter 2.8 cm LA Ao Ratio MM 1.0 MV E Point Septal Separation 1.0 cm DOPPLER AV Peak Velocity 151.0 cm/s LVOT Peak Velocity 112.0 cm/s AV Area Cont Eq vti 2.9 cm squared AV Area Cont Eq pk 2.5 cm squared MV Area PHT 5.0 cm squared Mitral E to A Ratio 1.3 MV E' Velocity 17.0 cm/s Mitral E to MV E' Ratio 7.5 Mitral E to LV E' Lateral Ratio 6.2 Mitral E to LV E' Septal Ratio 9.6 TR Peak Velocity 272.0 cm/s TR Peak Gradient 29.5 mmHg TV Peak E Velocity 125.0 cm/s Right Atrial Pressure 3.0 mmHg Pulmonary Artery Systolic Pressu 32.6 mmHg PV Peak Velocity 103.0 cm/s FINDINGS Left Ventricle Normal left ventricular size, systolic function and wall thickness, with no regional wall motion abnormalities. LV systolic function is normal with EF of 60 to 65%. Normal left ventricular wall thickness. Normal diastolic filling pattern. Right Ventricle The right ventricle is normal in size and function. Right Atrium The right atrium is normal in size. Left Atrium The left atrium is normal in size. Mitral Valve Structurally normal mitral valve without significant stenosis or prolapse. There is mild mitral regurgitation. Aortic Valve Structurally normal aortic valve without significant sclerosis or stenosis. There is trivial aortic regurgitation. Tricuspid Valve Structurally normal tricuspid valve without significant stenosis or regurgitation. Pulmonary artery systolic pressure is normal. Pulmonic Valve Structurally normal pulmonic valve without significant stenosis. There is no pulmonic regurgitation. Pericardium Normal pericardium without effusion. Aorta Normal ascending aorta dimension. CONCLUSIONS LV systolic function is normal with EF of 60 to 65%. Normal diastolic function. Marcelino Delarosa MD (Electronically Signed) Final Date: 25 December 2019 14:24 S
--- NOTE | 2019-12-24 20:15 | W.ED.DIZZY ---
HPI - Dizziness General: Chief Complaint: Dizziness Stated Complaint: LOW HR/DIZZY/POST CSECTION Time Seen by Provider: 12/24/19 16:45 History of Present Illness: HPI Narrative: This patient is a 29-year-old female who presents today with shortness of breath and fatigue. She is 7 days after . She required 2 units of blood after the . Her doctor sent her in today because of her low heart rate and symptoms. She normally has a normal heart rate and in the last few days it has been running in the 40s and 50s. She did not have any chest pain but does feel short of breath and very fatigued. She has some swelling in her legs. She still having a little bit of spotting after the which she feels like is normal. She has had multiple pregnancies before. With prior pregnancies she has had thyroiditis and has had palpitations and rapid heart rate with that. She was treated with beta-blockers in the past. Today she presents on methimazole presumably as a prophylaxis. She denies any other history of heart problems. She is otherwise healthy. MD elicited complaint: dizziness and lightheadedness Onset (ago): day(s) (3) Timing: gradual onset Severity: moderate Context: change in medication and other (7 days with ) Associated symptoms: Reports palpitations; Denies chest pain, headache(s), nausea or vomiting Associated neuro symptoms: Deny numbness in extremities Review of Systems General: Reports: 10 or more systems reviewed and unremarkable except in HPI and below Const: Reports: fatigue Card: Reports: palpitations and edema (Hips); Denies: chest pain Resp: Reports: dyspnea; Denies: productive cough or non-productive cough GI: Denies: nausea or vomiting Neuro: Denies: headache(s), numbness in extremities or lack of coordination PFSH ED PFSH: Medical History Gastroesophageal reflux in in third trimester Hyperthyroidism affecting in third trimester Patient denies medical problems Patient denies any past medical history of hypertension, diabetes, heart, lung, liver, kidney, thyroid, bleeding, or clotting problems. Thyroiditis Surgical History History of ankle surgery ORIF right ankle History of cholecystectomy (~2013) History of endoscopy Endoscopic retrograde cholangiopancreatography x 3 Family History Grandmother Diabetes paternal Hyperlipidemia paternal Hypertension paternal Hypothyroid paternal Family/Other Thyroid condition maternal aunts Denies family history of Clotting disorder Anesthesia complication Bleeding disorder Stroke Social History Smoking and tobacco status: former smoker Quit status (tobacco): has quit using tobacco Year quit tobacco: 2013 Alcohol intake: never Physical Exam Const: COMMON NORMALS: no acute distress, patient oriented x3, no limitations and alert GENERAL APPEARANCE: cooperative and comfortable HENMT: HEAD & SCALP: normal to inspection FACE & SINUS: normal facial exam Eye: GENERAL EYE: appearance normal, both eyes and all related structures Neck/C-Spine: COMMON NORMALS: supple, no meningeal signs and no JVD Chest: COMMONS NORMALS: normal inspection of the chest Resp: COMMON NORMALS: normal respiratory effort, No use of accessory muscles and clear to auscultation bilaterally AUSCULTATION: clear to auscultation bilaterally Cardio: COMMON NORMALS: no JVD, regular rate, regular rhythm and No murmurs present (Cardio) RATE: regular rate RHYTHM: regular rhythm GI: COMMON NORMALS: Normal to inspection, nondistended, normoactive bowel sounds present, Soft to palpation and non-tender INSPECTION: Yes normal to inspection AUSCULTATION: Yes normoactive bowel sounds PALPATION: Yes Soft to palpation Back/Pelvis: COMMON NORMALS: thoracic and lumbar spine normal to inspection Extremity: COMMON NORMALS: normal to inspection Neuro: COMMON NORMALS: patient oriented x3, moves all extremities, no focal motor deficits and no sensory deficits noted SENSORIUM/ORIENTATION: Yes alert MENINGEAL SIGNS: Yes no meningeal signs Psych: COMMON NORMALS: mental status grossly normal, cooperative and normal affect Skin: COMMON NORMALS: no rashes or lesions noted and turgor normal GENERAL SKIN EXAM: no rashes or lesions noted and turgor normal Course ED course: This patient presents with some symptoms concerning for cardiomyopathy as well as potentially thyroid issues. She has a history of thyroiditis. She is currently on methimazole. Work-up was unremarkable with the exception of a mild elevation in her BNP. Her EKGs did show bradycardia with frequent PVCs. Interestingly she reports that she started urinating out large amounts while in the department and started feeling better. Her heart rate also has come up into the 60s with far fewer PVCs. I discussed the case with the ethnographer and he requested an echo. This was done and showed normal function. She was discharged home and given follow-up with Dr. Rodriguez and an outpatient order was placed for Holter monitor. Vital Signs: Vital signs: Vital Signs Temperature 97.9 F 12/24/19 16:39 Pulse Rate 56 L 12/24/19 23:09 Respiratory Rate 23 H 12/24/19 23:09 Blood Pressure 147/74 12/24/19 23:09 Pulse Oximetry 98 12/24/19 23:09 MDM - Dizziness Lab Data: Labs: Lab Results 12/24/19 12/24/19 12/24/19 Range/Units 16:56 17:33 17:33 WBC 8.9 (4.0-10.0) 10^3/ uL RBC 4.55 (4.1-5.3) 10^6/u L Hgb 12.1 (11.5-15.3) g/dL Hct 38.0 (37.0-47.0) % MCV 83.5 (81-99) fL MCH 26.6 L (28.0-34.0) pg MCHC 31.8 (30.0-36.0) g/dL RDW 14.6 (12.1-15.1) % Plt Count 381 (130-400) 10^3/c mm MPV 10.4 (7.4-10.4) fL Neut % (Auto) 63.4 % Lymph % (Auto) 26.2 % Brooke % (Auto) 6.3 % Eos % (Auto) 1.4 % Baso % (Auto) 0.7 % Neut # (Auto) 5.61 (1.8-7.7) 10^3/u L Lymph # (Auto) 2.3 (0.8-4.8) 10^3/u L Brooke # (Auto) 0.6 (0.2-0.9) 10^3/u L Eos # (Auto) 0.1 (0.0-0.8) 10^3/u L Baso # (Auto) 0.1 (0.0-0.1) 10^3/u L Nucleated RBC % (a uto) 0 % Nucleated RBCs # 0.0 /100WBC Sodium 141 (136-145) mmol/L Potassium 3.9 (3.5-5.1) mmol/L Chloride 105 (98-107) mmol/L Carbon Dioxide 24 (22-29) mmol/L Anion Gap 15.9 (5-19) BUN 11 (6-20) mg/dL Creatinine 0.6 (0.5-0.9) mg/dL GFR Calculation 117.4 (90-130) mL/min Glucose 97 (65-115) mg/dL Calculated Osmolal ity 288 (285-295) mOsm/k g Lactic Acid (0.5-2.2) mmol/L Calcium 8.7 (8.5-10.5) mg/dL Magnesium 2.1 (1.7-2.3) mg/dL Total Bilirubin 0.3 (0.15-1.2) mg/dL AST 17 (0-32) U/L ALT 15 (0-33) U/L Alkaline Phosphata se 124 H (35-105) IU/L Troponin T Baselin e (0-10) ng/L Troponin T 120 Min [place] (0-10) ng/L Delta Troponin T (0-10) ABS# NT-Pro-B Natriuret Pep 646 H (0-125) pg/mL Total Protein 7.3 (6.6-8.7) g/dL Albumin 4.0 (3.5-5.2) g/dL Globulin 3.3 (1.3-4.6) g/dL TSH (0.27-4.20) uIU/ mL Free T4 (0.82-1.77) ng/d L Free T3 (2.0-4.4) PG/ML Urine Color Straw (Yellow) Urine Appearance Hazy A (CLEAR) Urine pH 7 (5-7) Ur Specific Gravit y 1.010 (1.005-1.030) Urine Protein Neg (Negative) Urine Glucose (UA) Norm (Normal) Urine Ketones Negative (Negative) Urine Blood 3+ H (Negative) Urine Nitrate Negative (Negative) Urine Bilirubin Neg (Negative) Urine Urobilinogen Norm (Negative) mg/dL Ur Leukocyte Serena ase Negative (Negative) Urine RBC 0-4 H (0-2) /hpf Urine WBC None (0-5) /hpf Ur Squamous Epith Cells 0-4 H (0-5) /hpf Amorphous Sediment Not Reportable Urine Bacteria Trace (NONE) /hpf 12/24/19 12/24/19 12/24/19 Range/Units 17:33 17:33 17:33 WBC (4.0-10.0) 10^3/ uL RBC (4.1-5.3) 10^6/u L Hgb (11.5-15.3) g/dL Hct (37.0-47.0) % MCV (81-99) fL MCH (28.0-34.0) pg MCHC (30.0-36.0) g/dL RDW (12.1-15.1) % Plt Count (130-400) 10^3/c mm MPV (7.4-10.4) fL Neut % (Auto) % Lymph % (Auto) % Brooke % (Auto) % Eos % (Auto) % Baso % (Auto) % Neut # (Auto) (1.8-7.7) 10^3/u L Lymph # (Auto) (0.8-4.8) 10^3/u L Brooke # (Auto) (0.2-0.9) 10^3/u L Eos # (Auto) (0.0-0.8) 10^3/u L Baso # (Auto) (0.0-0.1) 10^3/u L Nucleated RBC % (a uto) % Nucleated RBCs # /100WBC Sodium (136-145) mmol/L Potassium (3.5-5.1) mmol/L Chloride (98-107) mmol/L Carbon Dioxide (22-29) mmol/L Anion Gap (5-19) BUN (6-20) mg/dL Creatinine (0.5-0.9) mg/dL GFR Calculation (90-130) mL/min Glucose (65-115) mg/dL Calculated Osmolal ity (285-295) mOsm/k g Lactic Acid 1.0 (0.5-2.2) mmol/L Calcium (8.5-10.5) mg/dL Magnesium (1.7-2.3) mg/dL Total Bilirubin (0.15-1.2) mg/dL AST (0-32) U/L ALT (0-33) U/L Alkaline Phosphata se (35-105) IU/L Troponin T Baselin e 7 (0-10) ng/L Troponin T 120 Min [place] (0-10) ng/L Delta Troponin T (0-10) ABS# NT-Pro-B Natriuret Pep (0-125) pg/mL Total Protein (6.6-8.7) g/dL Albumin (3.5-5.2) g/dL Globulin (1.3-4.6) g/dL TSH 1.14 (0.27-4.20) uIU/ mL Free T4 (0.82-1.77) ng/d L Free T3 (2.0-4.4) PG/ML Urine Color (Yellow) Urine Appearance (CLEAR) Urine pH (5-7) Ur Specific Gravit y (1.005-1.030) Urine Protein (Negative) Urine Glucose (UA) (Normal) Urine Ketones (Negative) Urine Blood (Negative) Urine Nitrate (Negative) Urine Bilirubin (Negative) Urine Urobilinogen (Negative) mg/dL Ur Leukocyte Serena ase (Negative) Urine RBC (0-2) /hpf Urine WBC (0-5) /hpf Ur Squamous Epith Cells (0-5) /hpf Amorphous Sediment Urine Bacteria (NONE) /hpf 12/24/19 12/24/19 Range/Units 19:35 19:35 WBC (4.0-10.0) 10^3/ uL RBC (4.1-5.3) 10^6/u L Hgb (11.5-15.3) g/dL Hct (37.0-47.0) % MCV (81-99) fL MCH (28.0-34.0) pg MCHC (30.0-36.0) g/dL RDW (12.1-15.1) % Plt Count (130-400) 10^3/c mm MPV (7.4-10.4) fL Neut % (Auto) % Lymph % (Auto) % Brooke % (Auto) % Eos % (Auto) % Baso % (Auto) % Neut # (Auto) (1.8-7.7) 10^3/u L Lymph # (Auto) (0.8-4.8) 10^3/u L Brooke # (Auto) (0.2-0.9) 10^3/u L Eos # (Auto) (0.0-0.8) 10^3/u L Baso # (Auto) (0.0-0.1) 10^3/u L Nucleated RBC % (a uto) % Nucleated RBCs # /100WBC Sodium (136-145) mmol/L Potassium (3.5-5.1) mmol/L Chloride (98-107) mmol/L Carbon Dioxide (22-29) mmol/L Anion Gap (5-19) BUN (6-20) mg/dL Creatinine (0.5-0.9) mg/dL GFR Calculation (90-130) mL/min Glucose (65-115) mg/dL Calculated Osmolal ity (285-295) mOsm/k g Lactic Acid (0.5-2.2) mmol/L Calcium (8.5-10.5) mg/dL Magnesium (1.7-2.3) mg/dL Total Bilirubin (0.15-1.2) mg/dL AST (0-32) U/L ALT (0-33) U/L Alkaline Phosphata se (35-105) IU/L Troponin T Baselin e (0-10) ng/L Troponin T 120 Min [place] 6.16 (0-10) ng/L Delta Troponin T -0.84 L (0-10) ABS# NT-Pro-B Natriuret Pep (0-125) pg/mL Total Protein (6.6-8.7) g/dL Albumin (3.5-5.2) g/dL Globulin (1.3-4.6) g/dL TSH (0.27-4.20) uIU/ mL Free T4 1.31 (0.82-1.77) ng/d L Free T3 2.4 (2.0-4.4) PG/ML Urine Color (Yellow) Urine Appearance (CLEAR) Urine pH (5-7) Ur Specific Gravit y (1.005-1.030) Urine Protein (Negative) Urine Glucose (UA) (Normal) Urine Ketones (Negative) Urine Blood (Negative) Urine Nitrate (Negative) Urine Bilirubin (Negative) Urine Urobilinogen (Negative) mg/dL Ur Leukocyte Serena ase (Negative) Urine RBC (0-2) /hpf Urine WBC (0-5) /hpf Ur Squamous Epith Cells (0-5) /hpf Amorphous Sediment Urine Bacteria (NONE) /hpf Discharge Plan Discharge Patient Disposition: Home Clinical Impression: Bradycardia, Fatigue Condition: Stable Prescriptions: No Action prenat.vits,pamella,[id number] Tablet 1 tab PO DAILY RF: 0 calcium carbonate [Tums] 200 mg calcium (500 mg) tablet,chewable 200 mg PO TID PRN (Reason: Acid Reflux) RF: 0 folic acid 400 mcg tablet 0.4 mg PO DAILY RF: 0 methimazole 5 mg tablet 5 mg PO DAILY Qty: 30 RF: 0 omeprazole 20 mg capsule,delayed release(DR/EC) 20 mg PO DAILY Qty: 30 RF: 5 Iron (dried) 160 mg (50 mg iron) Tablet Extended Release 160 mg PO DAILY RF: 0 acetaminophen 325 mg Tablet 650 mg PO Q6H PRN (Reason: Mild pain or temp > 100.4) Qty: 60 RF: 0 ibuprofen 800 mg Tablet 800 mg PO TID Qty: 60 RF: 0 hydrocodone-acetaminophen 5-325 mg Tablet 1 - 2 tab PO Q4H PRN (Reason: Moderate To Severe Pain) Qty: 30 RF: 0 docusate sodium 100 mg Capsule 100 mg PO BID Qty: 60 RF: 0 Discharge Orders: Discharge Order (Routine); Ordered 12/24/19 Ordered By: Latrice Damon Other Ambulatory Orders: ECG holter monitor 24 hour (Routine) Timeframe: 1 Week Facility: [facility] - Location: Cardiac Diagnostic Laboratory Ordered By: Latrice Damon Referrals: Marcelino Delarosa M.D [Physician] - 7-10 days Cruz Huizar DO [Primary Care Provider] - Discharge Diet: Usual diet Discharge Activity: Resume usual activity Patient Instructions: Bradycardia (ED) Activity Restrictions/Additional Instructions: Return to the emergency department if you feel worse in any way. Rest. Continue to drink plenty of fluids. Follow-up with your OB doctor and we have also given you a referral to cardiology. We recommend a monitor that she wear at home for 24 hours. Someone should call you to make arrangements to have that placed. Discharge Date/Time: 12/24/19 23:12 Coding Level of Care Code ED Fertilizer Supervisor for Chg Fwd Exam Comprehensive
[2019-12-24 20:22] LABS: Troponin 5 2HR Delta -0.84 ABS# (0-10)
[2019-12-24 22:28] LABS: Free T4 Free Thyroxine 1.31 ng/dL (0.82-1.77); T3 Free 2.4 PG/ML (2.0-4.4)
[2019-12-24 23:09] VITALS: BP 147/74; PULSE 56; RESP 23; O2SAT 98
--- NOTE | 2019-12-29 08:28 | DCPLANNER ---
late entry - client service and consulting manager had message to schedule an out patient halter monitor for patient. client service and consulting manager faxed order to [facility]. will call for appointment information.
--- NOTE | 2020-01-06 14:47 | DCPLANNER ---
digital communications manager called [facility], spoke with Tahira to confirm if a follow up appointment had been scheduled for patient. digital communications manager was told that the clinic has tried multiple times to contact patient and has been unable to contact patient regarding appointment information, and patient has not returned any of their phone calls.
--- NOTE | 2020-02-01 12:42 | DCPLANNER ---
Patient has a follow up appointment scheduled with [facility], for Sunday, February 09, 2020 at 1:30 for a janie monitor. Clinic will call patient with appointment information.
--- NOTE | 2020-02-12 11:43 | DCPLANNER ---
Patient had a follow up appointment scheduled for 02.09.20 with [facility] -patient did not attend appointment.
== END 2019-12-24 23:12 | disposition home or self-care (01) ==
PROVIDERS: Emergency Provider Emergency Medicine; PCP Family Medicine
DX: R53.83 Other fatigue (principal); R00.1 Bradycardia, unspecified; Z87.891 Personal history of nicotine dependence
CPT/HCPCS: 12345; 36415; 71045; 80053; 81001; 83605; 83735; 83880; 84439; 84443; 84481; 84484; 85025; 93005; 93306; 99283; 99284

== ENCOUNTER → 2020-01-29 11:33 | Outpatient (BNVA) | payer MEDICAID, SELFPAY | PROVIDERS: PCP Family Medicine; Visit Provider Obstetrics & Gynecology | DX: E06.9 Thyroiditis, unspecified (principal); Z39.2 Encounter for routine postpartum follow-up | CPT/HCPCS: 84443 ==

== ENCOUNTER → 2022-08-07 16:00 | Outpatient (BNVA) | payer BC, MEDICAID, SELFPAY | PROVIDERS: PCP Family Medicine; Visit Provider Obstetrics & Gynecology | DX: N92.1 Excessive and frequent menstruation with irregular cycle (principal); N94.6 Dysmenorrhea, unspecified; E06.9 Thyroiditis, unspecified; E34.9 Endocrine disorder, unspecified; Z32.00 Encounter for pregnancy test, result unknown | CPT/HCPCS: 83001; 84146; 84443; 84702; 85025 ==

== ENCOUNTER → 2022-08-29 12:23 | Outpatient (BNVA) | payer BC, MEDICAID, SELFPAY | PROVIDERS: PCP Family Medicine; Visit Provider Obstetrics & Gynecology | DX: N94.6 Dysmenorrhea, unspecified (principal) | CPT/HCPCS: 76830 ==

== ENCOUNTER 2024-05-12 12:59 | Outpatient (CLI) | payer BC, SELFPAY ==
--- NOTE | 2024-05-12 13:10 | US_ITS ---
WS: [id number] THYROID ULTRASOUND HISTORY: ENLARGED THYROID COMPARISON: 08/24/2019 Right lobe: 2.0 cm x 2.0 cm x 5.1 cm (w x ap x l). Volume: 9.7 cm3. Mildly enlarged thyroid is very heterogeneous. Lobulated contour of the gland. Mixture of hyper and h ypoechoic parenchyma. There is no well-formed discrete nodule or mass. No increased vascularity. Left lobe: 1.7 cm x 1.5 cm x 4.7 cm (w x ap x l). Volume: 5.7 cm3. Normal sized gland with mild heterogeneity. Slightly lobulated contour of the gland. There are a few small cysts or colloid nodules. No solid mass or increased vascularity. Isthmus: 0.6 cm. US/US thyroid 13423 IMPRESSION: Heterogeneous thyroid gland similar to the prior study. No suspicious solid nod ules.
== END 2024-05-12 13:00 | disposition home or self-care (01) ==
LOC: RAD 13:01
PROVIDERS: PCP Nurse Practitioner Family; Visit Provider Nurse Practitioner Family
DX: E04.9 Nontoxic goiter, unspecified (principal); R93.89 Abnormal findings on diagnostic imaging of other specified body structures
CPT/HCPCS: 76536